=== PATIENT | female | born 1975 | race Hispanic/Latino ===

== ENCOUNTER 2021-04-25 13:07 | Emergency (ER) | payer OTHER ==
[2021-04-25 14:18] LABS: #Eosinphils 0.2 10x3/uL (0.0-0.5); #Monocytes 0.4 10x3/uL (0.0-1.1); #Neutrophils 3.6 10x3/uL (1.5-8.4); %Basophils 0.5 % (0.0-2.0); %Eosinophils 3.3 % (0.0-6.0); %Lymphocytes 30.1 % (18.0-47.0); %Neutrophils 59.8 % (40.0-75.0); Mean Corpuscular HGB CONC 30.4 g/dL (32.0-36.0); Mean Corpuscular Hemoglobin 21.5 pg (27.0-33.0); Mean Corpuscular Volume 70.8 fl (81.6-98.3); Mean Platelet Volume 9.5 fl (7.4-10.4); Platelet Count 375 10x3/uL (150-450); RBC Distribution Width 16.5 % (11.5-14.5); Red Blood Cell (RBC) Count 4.65 10x6/uL (3.90-5.03)
[2021-04-25 14:28] LABS: Anion Gap 11 mmol/L (10-20); BUN (Urea Nitrogen) 7 mg/dL (7.0-18.7); Calc. Creatinine Clearance 0 mL/min (70-130); Calcium 8.8 mg/dL (7.8-10.44); Carbon Dioxide 22 mmol/L (22-29); Chloride 107 mmol/L (98-107); Glucose 93 mg/dL (70-105); Potassium 3.1 mmol/L (3.5-5.1); Sodium 137 mmol/L (136-145)
[2021-04-25 14:35] LABS: Bilirubin Neg (Negative); Blood, Urine 250 (Negative); Clarity Cloudy (Clear); Glucose, Urine (Dipstick) Normal (Negative); Ketone, Urine Negative (Negative); Leukocyte 500 (Negative); Nitrite Negative (Negative); Protein, Urine (Dipstick) 30 mg/dl (Neg-Trace); Specific Gravity, Urine 1.025 (1.002-1.036); Urobilinogen Normal mg/dL (Less than 2)
[2021-04-25] MEDS ORDERED: Dicyclomine 20 MG TAB ONE (14:43)
[2021-04-25 14:45] LABS: ALT (SGPT) 86 U/L (8-55); AST (SGOT) 28 U/L (5-34); Alkaline Phosphatase 90 U/L (40-110); Anion Gap 11 mmol/L (10-20); BUN (Urea Nitrogen) 7 mg/dL (7.0-18.7); Bilirubin, Total 0.3 mg/dL (0.2-1.2); Calc. Creatinine Clearance 0 mL/min (70-130); Calcium 8.8 mg/dL (7.8-10.44); Carbon Dioxide 22 mmol/L (22-29); Chloride 107 mmol/L (98-107); Globulin 3.5 g/dL (2.4-3.5); Glucose 93 mg/dL (70-105); Potassium 3.1 mmol/L (3.5-5.1); Protein, Total 7.5 g/dL (6.0-8.3); Sodium 137 mmol/L (136-145)
[2021-04-25 14:48] LABS: Bacteria/HPF 1+ HPF (None Seen); RBC/HPF 0-3 HPF (0-3); WBC/HPF 21-50 HPF (0-3)
[2021-04-25 14:49] LABS: Mucous/LPF Few LPF (<2+)
[2021-04-25] MEDS ORDERED: Potassium Chloride 20 MEQ TAB ONE (15:27)
== END 2021-04-25 16:02 | disposition home or self-care (01) ==
LOC: CSHERS 13:07
DX: K52.9 Noninfective gastroenteritis and colitis, unspecified (principal); N30.00 Acute cystitis without hematuria; E11.9 Type 2 diabetes mellitus without complications
CPT/HCPCS: 80048; 81003; 81015; 85025; 99284

== ENCOUNTER 2021-05-25 16:09 | Emergency (ER) | payer BC, OTHER | END 2021-05-25 20:20 | disposition home or self-care (01) | LOC: CSHERS 16:09 | DX: B34.9 Viral infection, unspecified (principal); E11.9 Type 2 diabetes mellitus without complications | CPT/HCPCS: 71045 ==

== ENCOUNTER 2021-09-21 10:22 | Emergency (ER) | payer OTHER, SELFPAY | END 2021-09-21 12:30 | disposition home or self-care (01) | LOC: CSHERS 10:22 | DX: B34.9 Viral infection, unspecified (principal); E11.9 Type 2 diabetes mellitus without complications | CPT/HCPCS: 87804; 99283 ==

== ENCOUNTER 2021-12-28 11:29 | Emergency (ER) | payer OTHER | END 2021-12-28 12:31 | disposition home or self-care (01) | LOC: CSHERS 11:29 | DX: K04.7 Periapical abscess without sinus (principal); E11.9 Type 2 diabetes mellitus without complications | CPT/HCPCS: 99282 ==

== ENCOUNTER 2022-06-17 12:53 | Emergency (ER) | payer OTHER | END 2022-06-17 14:30 | disposition home or self-care (01) | LOC: CSHERS 12:53 | DX: B34.9 Viral infection, unspecified (principal); E11.9 Type 2 diabetes mellitus without complications | CPT/HCPCS: 87804; 99283 ==

== ENCOUNTER 2022-12-06 13:37 | Emergency (ER) | payer OTHER | END 2022-12-06 14:32 | disposition home or self-care (01) | LOC: CSHERS 13:37 | DX: J20.9 Acute bronchitis, unspecified (principal); E11.9 Type 2 diabetes mellitus without complications | CPT/HCPCS: 71045 ==

== ENCOUNTER 2023-10-15 11:58 | Emergency (ER) | payer OTHER ==
[2023-10-15] MEDS ORDERED: Ketorolac Tromethamine 30 MG (1 mL) VIAL ONE (13:00)
[2023-10-15 13:31] LABS: #Basophils 0.04 10x3/uL (0.0-0.2); #Eosinphils 0.05 10x3/uL (0.0-0.5); #Monocytes 0.63 10x3/uL (0.0-1.1); #Neutrophils 5.52 10x3/uL (1.5-8.4); %Basophils 0.5 % (0.0-2.0); %Eosinophils 0.6 % (0.0-6.0); %Lymphocytes 18.7 % (18.0-47.0); %Monocytes 8.2 % (0.0-10.0); %Neutrophils 71.6 % (40.0-75.0); Hematocrit 26.5 % (34.9-44.5); Mean Corpuscular HGB CONC 30.2 g/dL (32.0-36.0); Mean Corpuscular Hemoglobin 19.9 pg (27.0-33.0); Mean Corpuscular Volume 65.9 fl (81.6-98.3); Mean Platelet Volume 8.8 fl (7.4-10.4); Platelet Count 381 10x3/uL (150-450); RBC Distribution Width 17.2 % (11.5-14.5); Red Blood Cell (RBC) Count 4.02 10x6/uL (3.90-5.03); White Blood Cell (WBC) Count 7.7 10x3/uL (3.5-10.5)
[2023-10-15 13:39] LABS: BHCG - Serum Negative (NEGATIVE); Pregs Control Background? CLEAR/WHITE (CLR/WHITE); Pregs Control Bar Appear? YES (CONTROL BAR)
[2023-10-15 13:50] LABS: ALT (SGPT) 12 U/L (8-55); AST (SGOT) 8 U/L (5-34); Albumin 3.1 g/dL (3.5-5.0); Alkaline Phosphatase 69 U/L (40-110); Anion Gap 15 mmol/L (10-20); BUN (Urea Nitrogen) 8 mg/dL (7.0-18.7); Bilirubin, Total 0.4 mg/dL (0.2-1.2); Calc. Creatinine Clearance 0 mL/min (70-130); Carbon Dioxide 21 mmol/L (22-29); Chloride 106 mmol/L (98-107); Estimated GFR 108; Globulin 4.1 g/dL (2.4-3.5); Glucose 105 mg/dL (70-105); Lipase 9 U/L (8-78); Potassium 3.5 mmol/L (3.5-5.1); Protein, Total 7.2 g/dL (6.0-8.3); Sodium 138 mmol/L (136-145)
[2023-10-15 17:28] LABS: Anisocytosis SLIGHT = 6-15 cells (100X) (0-5/hpf); Microcytosis MODERATE=15-30 cells (100X) (0-5/hpf); Poikilocytosis SLIGHT = 6-15 cells (100X) (0-5/hpf)
[2023-10-15 17:29] LABS: Elliptocytes SLIGHT = 2-5 cells (100X) (0-1/hpf); Hypochromia SLIGHT = 6-15 cells (100X) (0-5/hpf); Ovalocytes SLIGHT = 2-5 cells (100X) (0-1/hpf); Platelet Adequacy Comment Appears Adequate
== END 2023-10-15 14:05 | disposition home or self-care (01) ==
LOC: CSHERS 11:58
DX: K08.89 Other specified disorders of teeth and supporting structures (principal); M79.10 Myalgia, unspecified site; E11.9 Type 2 diabetes mellitus without complications; Z79.84 Long term (current) use of oral hypoglycemic drugs
CPT/HCPCS: 36415; 80053; 83690; 84703; 85025; 96372; 99283; J1885

== ENCOUNTER 2024-05-30 13:24 | Emergency (ER) | payer OTHER ==
[2024-05-30] MEDS ORDERED: Ketorolac Tromethamine 30 MG (1 mL) VIAL ONE (13:59)
[2024-05-30] MEDS ORDERED: Ondansetron PF 4 MG/2 ML Vial ONE (13:59)
[2024-05-30] MEDS ORDERED: Famotidine/PF 20 mg/2ml Vial ONE (14:00)
[2024-05-30 14:56] LABS: #Basophils 0.03 10x3/uL (0.0-0.2); #Monocytes 0.42 10x3/uL (0.0-1.1); #Neutrophils 4.29 10x3/uL (1.5-8.4); %Basophils 0.4 % (0.0-2.0); %Eosinophils 1.5 % (0.0-6.0); %Lymphocytes 28.6 % (18.0-47.0); %Monocytes 6.1 % (0.0-10.0); %Neutrophils 62.8 % (40.0-75.0); Hematocrit 43.4 % (34.9-44.5); Hemoglobin 14.2 g/dL (12.0-15.5); Mean Corpuscular HGB CONC 32.7 g/dL (32.0-36.0); Mean Corpuscular Hemoglobin 26.5 pg (27.0-33.0); Mean Platelet Volume 9.2 fL (7.4-10.4); Platelet Count 336 10x3/uL (150-450); RBC Distribution Width 14.6 % (11.5-14.5); Red Blood Cell (RBC) Count 5.36 10x6/uL (3.90-5.03); White Blood Cell (WBC) Count 6.8 10x3/uL (3.5-10.5)
[2024-05-30 15:21] LABS: ALT (SGPT) 52 U/L (8-55); AST (SGOT) 25 U/L (5-34); Albumin 3.9 g/dL (3.5-5.0); Alkaline Phosphatase 75 U/L (40-110); Anion Gap 12 mmol/L (10-20); BUN (Urea Nitrogen) 7 mg/dL (7.0-18.7); Bilirubin, Total 0.5 mg/dL (0.2-1.2); Calc. Creatinine Clearance 0 mL/min (70-130); Calcium 9.3 mg/dL (7.8-10.44); Carbon Dioxide 22 mmol/L (22-29); Chloride 106 mmol/L (98-107); Estimated GFR 107; Globulin 3.5 g/dL (2.4-3.5); Glucose 156 mg/dL (70-105); Potassium 3.6 mmol/L (3.5-5.1); Protein, Total 7.4 g/dL (6.0-8.3); Sodium 136 mmol/L (136-145)
== END 2024-05-30 15:40 | disposition home or self-care (01) ==
LOC: CSHERS 13:24
DX: R19.7 Diarrhea, unspecified (principal); E11.9 Type 2 diabetes mellitus without complications
CPT/HCPCS: 80053; 85025; 96361; 96374; 96375; J1885; J2405; J3490

== ENCOUNTER 2025-01-23 10:06 | Emergency (ER) | payer OTHER | END 2025-01-23 11:05 | disposition home or self-care (01) | LOC: CSHERS 10:06 | DX: B34.9 Viral infection, unspecified (principal); E11.9 Type 2 diabetes mellitus without complications | CPT/HCPCS: 99282 ==

== ENCOUNTER 2025-02-26 16:01 | Emergency (ER) | payer OTHER ==
[2025-02-26] MEDS ORDERED: Acetaminophen 500 MG TAB ONE (17:04)
== END 2025-02-26 18:24 | disposition home or self-care (01) ==
LOC: CSHERS 16:01
DX: J00 Acute nasopharyngitis [common cold] (principal); J01.00 Acute maxillary sinusitis, unspecified; R59.0 Localized enlarged lymph nodes; E11.9 Type 2 diabetes mellitus without complications
CPT/HCPCS: 87428; 99283